=== PATIENT | female | born 1940 | race Asian ===

== ENCOUNTER 2017-05-27 08:58 | Day surgery (SDC) | payer MEDICARE, OTHER ==
[~2017-05-27 08:58] MED LIST: EPHEDrine SULFATE 50 MG/5 ML SYG
[2017-05-27] MEDS: NEPAFENAC 0.1% 3 ML OPH OPER (09:41)
[2017-05-27] MEDS: MOXIFLOXACIN 0.5% 3 ML OPH OPER (09:42)
[2017-05-27] MEDS: CYCLOPENTOLATE 2% 2 ML OPH OPER (09:42)
[2017-05-27] MEDS: PHENYLephrine 10% 5 ML OPH OPER ×2 (09:42→11:14)
[2017-05-27] MEDS ORDERED: TIMOLOL 0.5% 5 ML OPH (10:10)
[2017-05-27] MEDS ORDERED: EPINEPHrine 1 MG INJ (10:10)
[2017-05-27] MEDS ORDERED: LIDOCAINE 1% (MPF) 10 ML INJ (10:10)
[2017-05-27] MEDS ORDERED: BUPIVACAINE 0.75% (MPF) 10 ML INJ (10:10)
[2017-05-27] MEDS ORDERED: SODIUM BICARBONATE (IV ADD) 50 ML (10:11)
[2017-05-27] MEDS ORDERED: LIDOCAINE 1% (MDV) 20 ML INJ (10:32)
[2017-05-27] MEDS ORDERED: FENTAnyl 50 MCG/ML VIAL (10:32)
[2017-05-27] MEDS ORDERED: MIDAZOLAM 1 MG/ML 2 ML INJ (10:32)
[2017-05-27] MEDS ORDERED: PROPOFOL 20 ML (10:32)
[2017-05-27] MEDS ORDERED: PHENYLephrine (100 MCG/ML) 5ML SYG ×2 (10:49→11:06)
[2017-05-27] MEDS: TETRACAINE 0.5% 4 ML OPH (11:11)
[2017-05-27] MEDS ORDERED: FAMOTIDINE 20 MG INJ (11:17)
[2017-05-27] MEDS ORDERED: DEXAMETHASONE 4 MG/ML 1 ML INJ (11:17)
[2017-05-27] MEDS ORDERED: ONDANSETRON 4 MG INJ (11:17)
[2017-05-27] MEDS ORDERED: LABETALOL HCL 20MG INJ IV (12:00)
[2017-05-27] MEDS ORDERED: HYDROmorphONE (0.2 MG/ML) 10ML SYG IV (12:00)
[2017-05-27] MEDS ORDERED: hydrALAzine 20 MG INJ IV (12:00)
== END 2017-05-27 13:18 | disposition home or self-care (01) ==
LOC: SDS 08:58
DX: H25.12 Age-related nuclear cataract, left eye (principal); I10 Essential (primary) hypertension; E78.5 Hyperlipidemia, unspecified
CPT/HCPCS: 66984

== ENCOUNTER 2017-10-07 08:48 | Day surgery (SDC) | payer MEDICARE, OTHER ==
[2017-10-07] MEDS ORDERED: NEPAFENAC 0.1% 3 ML OPH (09:14)
[2017-10-07] MEDS ORDERED: PHENYLephrine 10% 5 ML OPH (09:15)
[2017-10-07] MEDS ORDERED: CYCLOPENTOLATE 2% 2 ML OPH (09:15)
[2017-10-07] MEDS ORDERED: MOXIFLOXACIN 0.5% 3 ML OPH (09:15)
[2017-10-07] MEDS: NEPAFENAC 0.1% 3 ML OPH OPER ×3 (10:55→11:05)
[2017-10-07] MEDS: CYCLOPENTOLATE 2% 2 ML OPH OPER ×4 (10:55→11:20)
[2017-10-07] MEDS: PHENYLephrine 10% 5 ML OPH OPER ×4 (10:55→11:19)
[2017-10-07] MEDS: MOXIFLOXACIN 0.5% 3 ML OPH OPER (10:55)
[2017-10-07] MEDS ORDERED: SODIUM BICARBONATE (IV ADD) 50 ML (11:33)
[2017-10-07] MEDS ORDERED: EPINEPHrine 1 MG INJ (11:33)
[2017-10-07] MEDS ORDERED: TIMOLOL 0.5% 5 ML OPH (11:33)
[2017-10-07] MEDS ORDERED: LIDOCAINE 1% (MPF) 10 ML INJ (11:33)
[2017-10-07] MEDS ORDERED: LIDOCAINE 2% (SDV) 5 ML INJ ×2 (11:37→12:54)
[2017-10-07] MEDS: LIDOCAINE 1% (MPF) 5 ML VIAL INJ (11:45)
[2017-10-07] MEDS ORDERED: PROPOFOL 20 ML (12:54)
[2017-10-07] MEDS: CARBACHOL 0.01% 1.5 ML OPH INJ IO (12:59)
[2017-10-07] MEDS ORDERED: hydrALAzine 20 MG INJ IV (13:00)
[2017-10-07] MEDS ORDERED: LABETALOL HCL 20MG INJ IV (13:00)
[2017-10-07] MEDS ORDERED: FENTAnyl 50 MCG/ML VIAL IV (13:00)
[2017-10-07] MEDS ORDERED: CARBACHOL 0.01% 1.5 ML OPH INJ (13:33)
== END 2017-10-07 15:00 | disposition home or self-care (01) ==
LOC: SDS 08:48
DX: H25.11 Age-related nuclear cataract, right eye (principal); E78.5 Hyperlipidemia, unspecified; I10 Essential (primary) hypertension
CPT/HCPCS: 66984